=== PATIENT | male | born 1955 | race Caucasian/White ===

== ENCOUNTER → 2018-03-07 | Outpatient (CLI) | payer OTHER ==
--- NOTE | 2018-03-07 17:04 | RAD ---
Left knee, 3 views, 03/07/2018: HISTORY: Chronic joint pain No fracture or dislocation is identified. No significant arthritic change is evident. A small joint effusion is seen. IMPRESSION: 1. No significant bony abnormality is detected. 2. Small left knee joint effusion. Electronically signed by: Tanmay Wong MD (03/07/2018 5:01 PM) [facility]
== END | disposition home or self-care (01) ==
LOC: RAD 09:24
PROVIDERS: ATTEND Physician Assistant Medical
DX: M25.462 Effusion, left knee (principal)
CPT/HCPCS: 73562

== ENCOUNTER 2020-04-10 12:23 | Emergency (ER) | payer OTHER ==
[~2020-04-10] VITALS: Ht 177.8 cm; Wt 82.3 kg
[2020-04-10 12:25] VITALS: BP 145/72
[2020-04-10] MEDS ORDERED: ASPIRIN CHEWABLE 81 MG TABLET. PO ONE (12:45)
--- NOTE | 2020-04-10 13:11 | PHYS DOC ---
General Adult EDM: Chief Complaint: CHEST PAIN-CARDIAC NATURE HPI: HPI: Patient is a 5-year-old female who presents with chest pressure and rapid heartbeat. Patient states this is happened a few times since 05 March. Each time it is happened he has been exerting himself, he states that the symptoms l ast usually all day. Patient also states that he retired on 04 April, and his dad at the beginning of February. "I feel like I been under a lot of stress with finances and insurance since retiring and losing my father". "I had anxiety in the past and this is kind of what it feels like". Patient denies nausea, vomiting, shortness of breath or pain. Patient repeats the pressure in his chest feels like it is epigastric. Patient sees Dr. Sanchez for primary care with yearly labs done in March but has not yet been evaluated for this complaint. Patient denies health history or family history of heart disease. (OPAL VOSS APRN) Review of Systems: Review of Systems: Constitutional: Denies fever or chills Eyes: Denies change in visual acuity HENT: Denies nasal congestion or sore throat Respiratory: Denies cough or shortness of breath Cardiovascular: Reports chest pressure and rapid heart rate,denies edema GI: Denies abdominal pain, nausea, vomiting, bloody stools or diarrhea : Denies dysuria Musculoskeletal: Denies back pain or joint pain Integument: Denies rash Neurologic: Denies headache, focal weakness or sensory changes Endocrine: Denies polyuria or polydipsia Lymphatic: Denies swollen glands Psychiatric: Denies depression or anxiety (OPAL VOSS APRN) Current Medications: Current Meds: Current Medications Medications (Trade) Dose Ordered Sig/Jo Start Time Stop Time Status Last Admin Dose Admin Aspirin (Aspirin Chewable) 324 mg 1X ONCE 04/10/20 12:45 04/10/20 12:46 UNV (OPAL VOSS APRN) Physical Exam: PE: Constitutional: Well developed, well nourished, no acute distress, non-toxic appearance. [] HENT: Normocephalic, atraumatic, bilateral external ears normal, oropharynx moist, no oral exudates, nose normal. [] Eyes: PERRLA, EOMI, conjunctiva normal, no discharge. [] Neck: Normal range of motion, no tenderness, supple, no stridor. [] Cardiovascular:Heart rate regular rhythm, no murmur [] Lungs & Thorax: Bilateral breath sounds clear to auscultation [] Abdomen: Bowel sounds normal, soft, no tenderness, no masses, no pulsatile masses. [] Skin: Warm, dry, no erythema, no rash. [] Back: No tenderness, no CVA tenderness. [] Extremities: No tenderness, no cyanosis, no clubbing, ROM intact, no edema. [] Neurologic: Alert and oriented X 3, normal motor function, normal sensory function, no focal deficits noted. [] Psychologic: Affect normal, judgement normal, mood normal. [] (OPAL VOSS APRN) EKG: EKG: [] EKG sinus rhythm heart rate 64 bpm. (OPAL VOSS APRN) Radiology/Procedures: Radiology/Procedures: [] EXAM: Chest, single view. HISTORY: Chest pain. COMPARISON: None. FINDINGS: A frontal view of the chest is obtained. There is no infiltrate, pleural effusion or pneumothorax. There is a granuloma within the left mid thorax. The heart is normal in size. IMPRESSION: No acute pulmonary finding. Electronically signed by: Naida Jacinto MD (04/10/2020 1:13 PM) [id number] (OPAL VOSS APRN) Heart Score: HEART Score for Chest Pain: HEART Score for Chest Pain Response (Comments) Value History Moderately Suspicious 1 ECG Normal 0 Age >45 - < 65 1 Risk Factors No Risk Factors 0 Total 2 Risk Factors: Risk Factors: DM, Current or recent (<one month) smoker, HTN, HLP, family history of CAD, obesity. Risk Scores: Score 0 - 3: 2.5% MACE over next 6 weeks - Discharge Home Score 4 - 6: 20.3% MACE over next 6 weeks - Admit for Clinical Observation Score 7 - 10: 72.7% MACE over next 6 weeks - Early Invasive Strategies (OPAL VOSS APRN) Course & Med Decision Making: Course & Med Decision Making Pertinent Labs and Imaging studies reviewed. (See chart for details) [] EKG sinus rhythm heart rate 64 bpm. Chest x-ray Negative. Patient reports heart palpitations with exertion. Symptoms started in March and has happened 3 times since[address] Patient sees Dr. Sanchez for primary care and had yearly labs drawn the beginning of March. Patient denies any health history or family history of heart disease. Heart Score of 2. Gave patient referral for [employer] to follow up for further evaluation. Patient states he will make an appointment. (OPAL VOSS APRN) Samanta Disclaimer: [place] Disclaimer: This electronic medical record was generated, in whole or in part, using a voice recognition dictation system. (OPAL VOSS APRN) Attending Co-Sign I oversaw on the above date of service of this patient and discussed the care with the LEAD [employer]ITARY ANALYST. We discussed heart score and the fact that patient had good access to PCP in outpatient setting for follow-up and further provocative cardiac testing. I agree with the findings, plan of care, and disposition as documented. (FILI SOLANO DO) Departure Departure: Impression: Primary Impression: Palpitations with regular cardiac rhythm Disposition: 01 DC HOME SELF CARE/HOMELESS Condition: STABLE Referrals: SAMIRA ELIAS (PCP) Patient Instructions: Palpitations, [id number] Additional Instructions: You were seen today for palpitations with exertion and epigastric pressure. Your EKG and chest x-ray were both normal. You will need to follow-up with your PCP Reyes to get further evaluation and referral to a death clearance coordinator. Please return to the emergency room with worsening condition or concerns. EMERGENCY DEPARTMENT GENERAL DISCHARGE INSTRUCTIONS Thank you for coming to [facility] (ED) today and trusting us with you care. We trust that you had a positivie experience in our Emergency Department. If you wish to speak to the department management, you may call the director at [phone]. YOUR FOLLOW UP INSTRUCTIONS ARE FOLLOWS: 1. Do you have a private Doctor? If you do not have a private doctor, please ask for a resource list of physicians or clinics that may be able to assist you with follow up care. 2. The Emergency Physician has interpreted your x-rays. The X-Ray specialist will also review them. If there is a change in the findings, you will be notified in 48 hours when at all possible. 3. A lab test or culture has been done, your results will be reviewed and you will be notified if you need a change in treatment. ADDITIONAL INSTRUCTIONS AND INFORMATION: 1. Your care today has been supervised by a physician who is specially trained in emergency care. Many problems require more than one evaluation for a complete diagnosis and treatment. We recommend that you schedule your follow up appointment as recommended to ensure complete treatment of you illness or injury. If you are unable to obtain follow up care and continue to have a problem, or if your condition worsens, we recommend that you return to the ED. 2. We are not able to safely determine your condition over the phone nor are we able to give sound medical advice over the phone. For these safety reasons, if you call for medical advice we will ask you to come to the ED for further evaluation. 3. If you have any questions regarding these discharge instructions please call the ED at [phone]. SAFETY INFORMATION: In the interest of safety, wellness, and injury prevention; we encourage you to wear your sealbelt, if you smoke; quite smoking, and we encourage family to use a protective helmet for bicycling and other sporting events that present an increased risk for head injury. IF YOUR SYMPTOMS WORSEN OR NEW SYMPTOMS DEVELOP, OR YOU HAVE CONCERNS ABOUT YOUR CONDITION; OR IF YOUR CONDITION WORSENS WHILE YOU ARE WAITING FOR YOUR FOLLOW UP APPOINTM ENT; EITHER CONTACT YOUR PRIMARY CARE DOCTOR, THE PHYSICIAN WHOSE NAME AND NUMBER YOU WERE GIVEN, OR RETURN TO THE ED IMMEDIATELY. OPAL VOSS APRN Apr 10, 2020 13:11 FILI SOLANO DO Apr 11, 2020 06:29
[2020-04-10 13:13] LABS: BASO % 1 % (0-3); EOS # 0.1 x10^3/uL (0.0-0.7); EOS % 1 % (0-3); HEMATOCRIT 45.8 % (39.0-53.0); HEMOGLOBIN 15.6 g/dL (13.0-17.5); LYMPH % 24 % (24-48); MEAN CORPUSCULAR HEMOGLOBIN 29 pg (25-35); MEAN CORPUSCULAR HGB CONC 34 g/dL (31-37); MEAN CORPUSCULAR VOLUME 86 fL (79-100); MONO # 0.4 x10^3/uL (0.0-1.1); MONO % 9 % (0-9); NEUT # 2.8 x10^3uL (1.8-7.7); NEUT % 65 % (31-73); PLATELET COUNT 193 x10^3/uL (140-400); RED CELL DISTRIBUTION WIDTH 13.1 % (11.5-14.5); WHITE BLOOD COUNT 4.4 x10^3/uL (4.0-11.0)
--- NOTE | 2020-04-10 13:15 | RAD ---
EXAM: Chest, single view. HISTORY: Chest pain. COMPARISON: None. FINDINGS: A frontal view of the chest is obtained. There is no infiltrate, pleural effusion or pneumo thorax. There is a granuloma within the left mid thorax. The heart is normal in size. IMPRESSION: No acute pulmonary finding. Electronically signed by: Naida Jacinto MD (04/10/2020 1:13 PM) [id number]
[2020-04-10 13:26] LABS: CALCIUM 8.9 mg/dL (8.5-10.1); CREATININE 0.9 mg/dL (0.7-1.3); POTASSIUM 3.8 mmol/L (3.5-5.1)
--- NOTE | 2020-04-10 14:59 | EKG ---
[address] [address] Test Date: 2020-04-10 Test Time: 12:29:01 Pat Name: CECIL HEWITT Department: Room: Gender: M Delivery Rep: BRUNA : 1955 Requested By: FILI SOLANO Order Number: [id number] Reading MD: Measurements Intervals Holmes Rate: 64 P: 45 LA: 182 QRS: 73 QRSD: 94 T: 22 QT: 382 QTc: 398 Interpretive Statements SINUS RHYTHM QRS(T) CONTOUR ABNORMALITY CONSIDER INFERIOR MYOCARDIAL DAMAGE POSSIBLY ABNORMAL ECG RI6.02 No previous ECG available for comparison
== END 2020-04-10 14:07 | disposition home or self-care (01) ==
LOC: ER 12:23
DX: R00.2 Palpitations (principal); R07.89 Other chest pain; R00.0 Tachycardia, unspecified
CPT/HCPCS: 36415; 71045; 80048; 83880; 84484; 85025; 93005; 99285-25

== ENCOUNTER → 2021-08-01 | Outpatient (CLI) | payer MEDICARE ==
[2021-08-01 09:58] LABS: ALBUMIN 3.5 g/dL (3.4-5.0); CALCIUM 8.5 mg/dL (8.5-10.1); CREATININE 0.9 mg/dL (0.7-1.3); GFR 84.7; POTASSIUM 3.8 mmol/L (3.5-5.1); TOTAL BILIRUBIN 0.9 mg/dL (0.2-1.0); TOTAL PROTEIN 6.9 g/dL (6.4-8.2)
[2021-08-02 12:30] LABS: CHOLESTEROL/HDL RATIO 3.7
== END ==
LOC: LAB 08:22
PROVIDERS: ATTEND Internal Medicine Cardiovascular Disease
DX: I25.10 Atherosclerotic heart disease of native coronary artery without angina pectoris (principal)
CPT/HCPCS: 36415; 80053; 80061